=== PATIENT | female | born 1930 | race Caucasian/White ===

== ENCOUNTER 2016-10-20 13:08 | Observation (INO) | payer MEDICARE ==
[~2016-10-20] VITALS: Ht 170.2 cm; Wt 68.5 kg
[~2016-10-20 13:08] MED LIST: LACTG PO; METR-1 PO; ZOLP10TA3 PO; [UNRECOGNIZED DRUG - OTHER]
[2016-10-20 13:12] VITALS: BP 194/90; PULSE 86; RESP 20; TEMP 97.8; O2SAT 99
[2016-10-20 14:55] LABS: AUTOMATED NEUTROPHIL # 5.2 TH/MM3 (1.8-7.7); BASOPHIL # 0.1 TH/MM3 (0-0.2); EOSINOPHIL # 0.3 TH/MM3 (0-0.4); EOSINOPHIL % 3.7 % (0.0-4.0); HEMATOCRIT 44.9 % (35.0-46.0); HEMO FLAGS DIFF FINAL; LYMPH % 23.4 % (9.0-44.0); LYMPHOCYTE # 1.9 TH/MM3 (1.0-4.8); MEAN CELL VOLUME 95.2 FL (80.0-100.0); MEAN CORPUSCULAR HEMOGLOBIN 31.8 PG (27.0-34.0); MEAN CORPUSCULAR HGB CONC 33.4 % (32.0-36.0); NEUT % 63.9 % (16.0-70.0); PLATELET COUNT 276 TH/MM3 (150-450); RED BLOOD COUNT 4.71 MIL/MM3 (4.00-5.30); RED CELL DISTRIBUTION WIDTH 14.2 % (11.6-17.2); WHITE BLOOD COUNT 8.1 TH/MM3 (4.0-11.0)
--- NOTE | 2016-10-20 14:59 | RADRPT ---
EXAM DATE/TIME: 10/20/2016 14:42 [facility] COMPARISON: CHEST SINGLE AP, February 15, 2014, 11:51. INDICATIONS : Syncope, fainted yesterday, weakness in her right arm. MEDICAL HISTORY : None. SURGICAL HISTORY : None. ENCOUNTER: Initial ACUITY: 1 day PAIN SCORE: 0/10 LOCATION: Bilateral chest FINDINGS: The heart is normal size. There are chronic interstitial changes within the pulmonary parenchyma. The lungs are otherwise clear. There degenerative changes within the spine. CONCLUSION: 1. Chronic interstitial changes. No acute abnormality. Vincenzo Ramirez MD on October 20, 2016 at 14:55 Board Certified Radiologist. This report was verified electronically.
[2016-10-20 15:15] LABS: ANION GAP 8 MEQ/L (5-15); BICARBONATE 25.6 MEQ/L (21.0-32.0); BLOOD UREA NITROGEN 11 MG/DL (7-18); CHLORIDE 107 MEQ/L (98-107); GLOMERULAR FILTRATION RATE 81 ML/MIN (>89); POTASSIUM 3.9 MEQ/L (3.5-5.1); SODIUM (NA) 141 MEQ/L (136-145)
[2016-10-20 15:17] VITALS: BP 187/79; PULSE 87; RESP 20; O2SAT 99
[2016-10-20 15:19] LABS: CREATINE KINASE 38 U/L (26-192)
[2016-10-20] MEDS ORDERED: ASPI81CH PO (16:01)
[2016-10-20] MEDS ORDERED: AMBI10TA PO (16:01)
--- NOTE | 2016-10-20 16:23 | EKG ---
Date Performed: 10/20/2016 Time Performed: 14:00:49 PTAGE: 85 years EKG: Sinus rhythm NONSPECIFIC ST & T-WAVE ABNORMALITY BORDERLINE ECG PREVIOUS TRACING : 10/20/2016 13.55 No significant change from previous tracing noted. DOCTOR: Alirio Gray Interpretating Date/Time 10/22/2016 08:13:37
--- NOTE | 2016-10-20 16:23 | PD ---
HPI Chief Complaint: Neuro Symptoms/ Deficits Time Seen by Provider: 16:23 (Analilia Morales) Travel History International Travel<30 days: No Contact w/Intl Traveler<30days: No Traveled to known affect area: No (Analilia Morales) History of Present Illness HPI 85-year-old female with no significant medical history presents to the emergency department for evaluation. Patient states that last evening she was talking with her sister when she "passed out." Abrasion states that she was unconscious for a short amount of time but woke up on the floor and urine. She is uncertain if she struck her head but does not believe so. Today she has been reporting mild headache and neck pain. She also reports right upper extremity numbness and a decreased assurance auditor over the last 2-3 days. Patient states she has even dropped her beer because of this. She does drink 2-3 beers nightly. Denies any chest tightness. No difficulty breathing. No other focal deficits or weakness. Patient's primary care provider is Dr. LEVY. She has no other symptoms to report of time. (Analilia Morales) [facility] Past Medical History Arthritis: Yes Cardiovascular Problems: No High Cholesterol: Yes Diminished Hearing: Yes (RIGHT) Neurologic: Yes (sleep disorder ) Tetanus Vaccination: < 5 Years Influenza Vaccination: Yes Menopausal: Yes (Analilia Morales) Past Surgical History Eye Surgery: Yes (cataracts) Hysterectomy: Yes Pacemaker: No Other Surgery: Yes (LAMINECTOMY, SINUS SURGERY) (Analilia Morales) Social History Alcohol Use: Yes (A BEER NIGHTLY) Tobacco Use: No Substance Use: No (Analilia Morales) Allergies-Medications (Allergen,Severity, Reaction): Coded Allergies: Sulfa (Verified Allergy, Severe, 10/20/16) Adhesives (Verified Allergy, Intermediate, RASH, 10/20/16) Reported Meds & Prescriptions Reported Meds & Active Scripts Active Reported Ambien (Zolpidem Tartrate) 10 Mg Tab 10 Mg PO HS PRN Aspirin 81 Mg Chew 81 Mg PO DAILY (Meera Su MD) Review of Systems Except as stated in HPI: all other systems reviewed are Neg (Analilia Morales ) Physical Exam Narrative GENERAL: Well-nourished elderly female patient, sitting up in bed in no acute distress SKIN: Focused skin assessment warm/dry. HEAD: Atraumatic. Normocephalic. EYES: Pupils equal and round. No scleral icterus. No injection or drainage. ENT: No nasal bleeding or discharge. Mucous membranes pink and moist. NECK: Trachea midline. No JVD. CARDIOVASCULAR: Regular rate and rhythm. No murmur appreciated. RESPIRATORY: No accessory muscle use. Clear to auscultation. Breath sounds equal bilaterally. GASTROINTESTINAL: Abdomen soft, non-tender, nondistended. Hepatic and splenic margins not palpable. MUSCULOSKELETAL: No obvious deformities. No clubbing. No cyanosis. No edema. NEUROLOGICAL: Awake and alert. No obvious cranial nerve deficits. Motor grossly within normal limits. Normal speech. PSYCHIATRIC: Appropriate mood and affect; insight and judgment normal. (Analilia Morales) Data Data Orders Electrocardiogram (10/20/16 13:44) Complete Blood Count With Diff (10/20/16 13:44) Basic Metabolic Panel (Bmp) (10/20/16 13:44) Ckmb (Isoenzyme) Profile (10/20/16 13:44) Troponin I (10/20/16 13:44) Iv Access Insert/Monitor (10/20/16 13:44) Chest, Pa & Lat (10/20/16 13:44) Ct Brain W/O Iv Contrast(Rout) (10/20/16 ) Urinalysis - C+S If Indicated (10/20/16 16:21) Ct Cerv Spine W/O Contrast (10/20/16 ) Electrocardiogram (10/20/16 ) Troponin I (10/20/16 16:23) Neuro Checks . ORDERED (10/20/16 18:28) Sodium Chlor 0.9% 1000 Ml Inj (Ns 1000 M (10/20/16 18:30) Diet Heart Healthy (10/20/16 Dinner) Admit Order (Ed Use Only) (10/20/16 18:29) (Meera Su MD) [facility] Medical Decision Making Medical Screen Exam Complete: Yes Emergency Medical Condition: Yes Medical Record Reviewed: Yes Differential Diagnosis Syncope versus near syncope versus arrhythmia versus electrolyte abnormality versus UTI versus TIA Narrative Course 85 year-old female presents to emergency department for evaluation following a syncopal episode that occurred yesterday. Patient has no focal deficits or weakness on assessment, however she does report subjective weakness in the right upper extremity over the last 2-3 days. No obvious trauma. CBC and BMP are without acute concern. Troponin is less than 0.02. CT imaging is without any acute intracranial abnormality. Last Impressions Chest X-Ray 10/20/16 1344 Signed Impressions: Service Date/Time: Tuesday, October 20, 2016 14:42 - CONCLUSION: 1. Chronic interstitial changes. No acute abnormality. Vincenzo Ramirez MD Head CT 10/20/16 0000 Signed Impressions: Service Date/Time: Tuesday, October 20, 2016 17:29 - CONCLUSION: Chronic and small vessel ischemic changes without any evidence for acute hemorrhage or mass effect. Maggie Iqbal MD Cervical Spine CT 10/20/16 0000 Signed Impressions: Service Date/Time: Tuesday, October 20, 2016 17:31 - CONCLUSION: Chronic changes as above without fracture or any significant compromise to the thecal sac or the exiting nerve roots. Maggie Iqbal MD I discussed the patient with my attending physician who agrees the patient would benefit from further syncopal workup as she is 85. Pt also has subjective RUE weakness x 3 days with no obvious etiology from her cervical spine: TIA versus CVA may need to be considered. A call has been placed [facility] with [facility] for observation admission. Plan is discussed with the patient and her family at bedside. They are in agreement with this plan of care. (Analilia Morales) Narrative Course Router Operator Radial signing for document in draft. (eMera Su MD) Diagnosis Primary Impression: Syncope Qualified Code: R55 - Syncope, unspecified syncope type Additional Impressions: RUE numbness RUE weakness UTI (urinary tract infection) Qualified Code: N39.0 - Urinary tract infection without hematuria, site unspecified Admitting Information Admitting Physician Requests: Observation (Analilia Morales) Scripts Cephalexin 500 Mg [id number] Mg PO TID #19 CAP Ref 0 Prov:Janis Robbins MD 10/21/16 Condition: Stable Analilia Morales Oct 20, 2016 16:23 Meera Su MD Oct 29, 2016 17:32 Calcium Level 9.3 MG/DL Total Creatine Kinase 38 U/L Troponin I LESS THAN 0.02 LESS THAN 0.02 NG/ML NG/ML Urine Color LIGHT-YELLOW Urine Turbidity CLEAR Urine pH 6.5 Urine Specific [place] 1.007 Urine Protein NEG mg/dL Urine Glucose (UA) NEG mg/dL Urine Ketones NEG mg/dL Urine Occult Blood NEG Urine Nitrite NEG Urine Bilirubin NEG Urine Urobilinogen LESS THAN 2.0 MG/DL Urine Leukocyte Esterase LARGE Urine RBC 1 /hpf Urine WBC 16 /hpf Urine Squamous Epithelial <1 /hpf Cells Urine Bacteria RARE /hpf Microscopic Urinalysis Comment CULTURE INDICATED MDM Medical Decision Making Medical Screen Exam Complete: Yes Emergency Medical Condition: Yes Medical Record Reviewed: Yes Differential Diagnosis Syncope versus near syncope versus arrhythmia versus electrolyte abnormality versus UTI versus TIA Narrative Course 85 year-old female presents to emergency department for evaluation following a syncopal episode that occurred yesterday. Patient has no focal deficits or weakness on assessment, however she does report subjective weakness in the right upper extremity over the last 2-3 days. No obvious trauma. CBC and BMP are without acute concern. Troponin is less than 0.02. CT imaging is without any acute intracranial abnormality. Last Impressions Chest X-Ray 10/20/16 1344 Signed Impressions: Service Date/Time: Tuesday, October 20, 2016 14:42 - CONCLUSION: 1. Chronic interstitial changes. No acute abnormality. Vincenzo Ramirez MD Head CT 10/20/16 0000 Signed Impressions: Service Date/Time: Thursday, October 20, 2016 17:29 - CONCLUSION: Chronic and small vessel ischemic changes without any evidence for acute hemorrhage or mass effect. Maggie Iqbal MD Cervical Spine CT 10/20/16 0000 Signed Impressions: Service Date/Time: Thursday, October 20, 2016 17:31 - CONCLUSION: Chronic changes as above without fracture or any significant compromise to the thecal sac or the exiting nerve roots. aMggie Iqbal MD I discussed the patient with my attending physician who agrees the patient would benefit from further syncopal workup as she is 85. Pt also has subjective RUE weakness x 3 days with no obvious etiology from her cervical spine: TIA versus CVA may need to be considered. A call has been placed Merged with [facility] for observation admission. Plan is discussed with the patient and her family at bedside. They are in agreement with this plan of care. Diagnosis Primary Impression: Syncope Qualified Code: R55 - Syncope, unspecified syncope type Additional Impressions: RUE numbness RUE weakness UTI (urinary tract infection) Qualified Code: N39.0 - Urinary tract infection without hematuria, site unspecified Admitting Information Admitting Physician Requests: Observation Condition: Stable Analilia Morales Oct 20, 2016 16:23
[2016-10-20 16:50] VITALS: BP 152/87; PULSE 89; RESP 16; TEMP 97.9; O2SAT 99
--- NOTE | 2016-10-20 17:50 | RADRPT ---
EXAM DATE/TIME: 10/20/2016 17:29 [facility] COMPARISON: CT BRAIN W/O CONTRAST, February 15, 2014, 12:12. INDICATIONS : Syncope episode last night. RADIATION DOSE: 56.35 CTDIvol (mGy) MEDICAL HISTORY : None SURGICAL HISTORY : Hysterectomy. ENCOUNTER: Initial ACUITY: 1 day PAIN SCALE: 0/10 LOCATION: cranial TECHNIQUE: Multiple contiguous axial images were obtained of the head. Using automated exposure control and adj ustment of the mA and/or kV according to patient size, radiation dose was kept as low as reasonably a chievable to obtain optimal diagnostic quality images. DICOM format image data is available electro nically for review and comparison. FINDINGS: There is no evidence for intracranial hemorrhage, mass effect, mass lesions, or edema. The visualize d bony structures appear intact. Moderate degree of brain atrophy is seen. Moderate periventricular white matter changes are seen nonspecific mostly consistent with chronic small vessel ischemic change s. There are no signs of acute infarction for technique. CONCLUSION: Chronic and small vessel ischemic changes without any evidence for acute hemorrhage o r mass effect. Maggie Iqbal MD on October 20, 2016 at 17:46 Board Certified Radiologist. This report was verified electronically.
--- NOTE | 2016-10-20 17:56 | RADRPT ---
EXAM DATE/TIME: 10/20/2016 17:31 [facility] COMPARISON: No previous studies available for comparison. INDICATIONS : Syncope episode last night. RADIATION DOSE: 27.15 CTDIvol (mGy) MEDICAL HISTORY : None SURGICAL HISTORY : Hysterectomy. ENCOUNTER: Initial ACUITY: 1 day PAIN SCALE: 0/10 LOCATION: neck TECHNIQUE: Volumetric scanning of the cervical spine was performed. Multiplanar reconstructions in the sagittal, coronal and oblique axial planes were performed. Using automated exposure control and adjustment o f the mA and/or kV according to patient size, radiation dose was kept as low as reasonably achievable to obtain optimal diagnostic quality images. DICOM format image data is available electronically f or review and comparison. FINDINGS: No evidence of subluxation. Short node formation is present involving the superior endplate of T 2. There is osteopenia without definite fracture. Surgical screws traverse the bodies of C3 and C4 wi th a plate placed anteriorly and evidence for anterior fusion. There is pannus formation at the C1-2 level surrounding the dens chronic in nature. C2-C3: There is no evidence for any significant compromise to the thecal sac, or the exiting nerve roots. N o appreciable thecal sac stenosis is seen. The neural foramina and lateral recess appear patent bila terally. C3-C4: There is no evidence for any significant compromise to the thecal sac, or the exiting nerve roots. N o appreciable thecal sac stenosis is seen. The neural foramina and lateral recess appear patent bila terally. C4-C5: Slight hypertrophic changes are seen with indentation on the thecal sac and no significant compromise to the thecal sac or the exiting nerve roots. The neural foramina are grossly patent bilaterally. C5-C6: Slight bulging disc and hypertrophic changes are seen with indentation on the thecal sac and no signi ficant compromise to the thecal sac or the exiting nerve roots. C6-C7: Slight degenerative changes are seen within the disc space and facets. Slight bulging disc and hypert rophic changes are seen with indentation on the thecal sac and no significant compromise to the theca l sac or the exiting nerve roots. C7-T1: There is no evidence for any significant compromise to the thecal sac, or the exiting nerve roots. N o appreciable thecal sac stenosis is seen. The neural foramina and lateral recess appear patent bila terally. CONCLUSION: Chronic changes as above without fracture or any significant compromise to the thecal sac or the exit ing nerve roots. Maggie Iqbal MD on October 20, 2016 at 17:49 Board Certified Radiologist. This report was verified electronically.
[2016-10-20 18:30] LABS: BACTERIA, URINE RARE /hpf; BLOOD, URINE NEG (NEG); COMMENT (UR) CULTURE INDICATED; CULTURE IF INDICATED CULTURE INDICATED; GLUCOSE,URINE NEG (NEG); KETONE, URINE NEG (NEG); NITRITE,URINE NEG (NEG); PH, URINE 6.5 (5.0-8.5); SQUAMOUS EPITHELIAL CELL URINE <1 /hpf (0-5); URINE COLOR LIGHT-YELLOW (YELLW/STRAW)
[2016-10-20] MEDS ORDERED: SODIUM CHLOR 0.9% 1000 ML INJ 1,000 ML IV SCH (18:30)
[2016-10-20] MEDS ORDERED: SODIUM CHLORIDE 0.9% FLUSH 10 ML FLUSH IV FLUSH PRN (20:30)
[2016-10-20 20:52] VITALS: BP 183/93; PULSE 89; RESP 17; TEMP 97.6; O2SAT 96
[2016-10-20] MEDS ORDERED: ACETAMINOPHEN 325 MG TAB PO PRN (21:00)
--- NOTE | 2016-10-20 21:57 | RADRPT ---
EXAM DATE/TIME: 10/20/2016 21:19 [facility] COMPARISON: No previous studies available for comparison. INDICATIONS : Syncope. MEDICAL HISTORY : Hypercholesterolemia. Hypertension. Arthritis. SURGICAL HISTORY : Total knee replacement, left. Hip replacement, right. L3, L4, L5 fusion. ENCOUNTER: Initial ACUITY: 1 day PAIN SCORE: 0/10 LOCATION: Bilateral neck PEAK SYSTOLIC VELOCITIES (cm/sec): ICA/CCA RATIO: Right: 0.9 Left: 1.5 ICA: Right: 59.6 Left: 90.6 CCA: Right: 63.3 Left: 61.2 ECA: Right: 67.2 Left: 58.0 VERTEBRAL: Right: 33.1 antegrade Left: 43.8 antegrade Elevated flow velocities and ICA/CCA ratios have been found to correlate with increased degrees of vessel stenosis, calculated as percentage of diameter relative to a normal segment of distal ICA/CCA FINDINGS: RIGHT CAROTID: There is no evidence for a hemodynamically significant carotid stenosis. Minimal int imal hyperplasia is present with scattered calcific plaque. LEFT CAROTID: There is no evidence for a hemodynamically significant carotid stenosis. Minimal inti mal hyperplasia is present with scattered calcific plaque. VERTEBRAL ARTERIES: Flow is antegrade in both vertebral arteries. MISCELLANEOUS: There are no ancillary masses or adenopathy. CONCLUSION: Negative examination for a hemodynamically significant carotid stenosis. Antelmo Ramirez MD FACR Board Certified Radiologist. This report was verified electronically.
--- NOTE | 2016-10-20 22:33 | EKG ---
Date Performed: 10/20/2016 Time Performed: 16:48:30 PTAGE: 85 years EKG: Sinus rhythm NONSPECIFIC ST & T-WAVE ABNORMALITY BORDERLINE ECG PREVIOUS TRACING : 10/20/2016 14.00 No significant change from previous tracing noted. DOCTOR: Alirio Gray Interpretating Date/Time 10/20/2016 22:31:24
--- NOTE | 2016-10-20 23:11 | HHI.HP ---
HPI Service [facility] Primary Care Physician Evelyne Tristan MD Admission Diagnosis syncope; subjective RUE weakness/numbness Diagnoses: (1) Syncope (2) UTI (urinary tract infection) Chief Complaint: Passed out while in bathroom Travel History International Travel<30 Days: No Contact w/Intl Traveler <30 Da: No Traveled to Known Affected Are: No History of Present Illness Written by Chula Tipton, acting as scribe for Dr. Medel on 10/20/16 at 23:11. The patient was going to sit on the toilet yesterday afternoon and blacked out and ended up waking up on the floor covered in urine and feces. She drank two beers prior to this episode. She was unable to get back up; a neighbor alerted her son who was sitting in the garage and he came to get her up. She went about her day as normal afterwards. The next day, her son talked her into to calling her primary doctor but he's out of town so she was referred to urgent care. She went to urgent care and they referred her to the ED. 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 She says her splunk dashboard developer is just weak bilaterally and it made her drop a large beer a couple of days ago. Denies blurred vision, tinnitus, chest pain, shortness of breath, weakness, or paresthesias. The first time this occurred was in June 2016; went with family. They had been drinking, including the patient, she also took a sleeping pill and she passed out while going to bathroom. The patient reports a great deal of stress in personal life - her son . Review of Systems Except as stated in HPI: all other systems reviewed are Neg Past Family Social History Past Medical History Insomnia Denies diabetes mellitus, hypertension, copd, liver or kidney problems, DVT, PE , CVA, seizures, cancer, thyroid problems . Past Surgical History Hysterectomy Total right hip arthroplasty Total left knee arthroplasty Right Blepharoplasty Carpal tunnel Sinus surgery Breast biopsy- benign Back and neck surgeries with metal angi placement . Reported Medications Ambien mg qhs prn insomnia Probiotic Aspirin 81 Mg . Allergies: Coded Allergies: Sulfa (Verified Allergy, Severe, 10/20/16) Adhesives (Verified Allergy, Intermediate, RASH, 10/20/16) Active Ordered Medications Current Medications Sodium Chloride (NS 1000 ml Inj) 1,000 ml @ 75 mls/hr [id number] IV Last administered on 10/20/16t 20:11; Start 10/20/16 at 18:30 Cephalexin Monohydrate (Keflex) 500 mg Q12HR PO ; Start 10/20/16 at 21:00; Stop 10/27/16 at 20:59 Sodium Chloride (NS Flush) 2 ml UNSCH PRN IV FLUSH FLUSH AFTER USING IV ACCESS ; Start 10/20/16 at 20:30 Sodium Chloride (NS Flush) 2 ml BID IV FLUSH ; Start 10/20/16 at 21:00 Acetaminophen (Tylenol) 650 mg Q6HR PRN PO pain 1-10, fever > 100.4; Start 03/27 at 21:00 . Family History Denies any significant family medical history - specifically diabetes or cancers . Social History Tobacco: denies Alcohol: two beers daily Illicit Drugs: denies . Physical Exam Vital Signs Vital Signs Date Time Temp Pulse Resp B/P Pulse Ox O2 Delivery O2 Flow Rate FiO2 10/20/16 20:52 97.6 89 17 183/93 96 10/20/16 16:50 97.9 89 16 152/87 99 Room Air 10/20/16 16:02 81 16 99 Room Air 10/20/16 15:17 87 20 187/79 99 10/20/16 13:12 97.8 86 20 194/90 99 Room Air Physical Exam GENERAL: This is a pleasant female patient, in no apparent distress. SKIN: No rashes, ecchymoses or lesions. Cool and dry. HEAD: Atraumatic. Normocephalic. EYES: No scleral icterus. No injection or drainage. ENT: Nose without bleeding, purulent drainage. NECK: Trachea midline. No JVD or lymphadenopathy. CARDIOVASCULAR: Regular rate and rhythm without murmurs, gallops, or rubs. RESPIRATORY: Clear to auscultation. Breath sounds equal bilaterally. No wheezes , rales, or rhonchi. GASTROINTESTINAL: Abdomen soft, non-tender, nondistended. No guarding. MUSCULOSKELETAL: Extremities without clubbing, cyanosis, or edema. No calf tenderness. NEUROLOGICAL: Awake and alert. Motor and sensory grossly within normal limits. Normal speech. No focal deficits noted. . Laboratory Laboratory Tests Test 10/20/16 10/20/16 10/20/16 14:10 16:30 17:30 White Blood Count 8.1 Red Blood Count 4.71 Hemoglobin 15.0 Hematocrit 44.9 Mean Corpuscular Volume 95.2 Mean Corpuscular Hemoglobin 31.8 Mean Corpuscular Hemoglobin 33.4 Concent Red Cell Distribution Width 14.2 Platelet Count 276 Mean Platelet Volume 8.2 Neutrophils (%) (Auto) 63.9 Lymphocytes (%) (Auto) 23.4 Monocytes (%) (Auto) 8.0 Eosinophils (%) (Auto) 3.7 Basophils (%) (Auto) 1.0 Neutrophils # (Auto) 5.2 Lymphocytes # (Auto) 1.9 Monocytes # (Auto) 0.6 Eosinophils # (Auto) 0.3 Basophils # (Auto) 0.1 CBC Comment DIFF FINAL Differential Comment Sodium Level 141 Potassium Level 3.9 Chloride Level 107 Carbon Dioxide Level 25.6 Anion Gap 8 Blood Urea Nitrogen 11 Creatinine 0.69 Estimat Glomerular Filtration 81 Rate Random Glucose 85 Calcium Level 9.3 Total Creatine Kinase 38 Troponin I LESS THAN 0.02 LESS THAN 0.02 Urine Color LIGHT-YELLOW Urine Turbidity CLEAR Urine pH 6.5 Urine Specific [place] 1.007 Urine Protein NEG Urine Glucose (UA) NEG Urine Ketones NEG Urine Occult Blood NEG Urine Nitrite NEG Urine Bilirubin NEG Urine Urobilinogen LESS THAN 2.0 Urine Leukocyte Esterase LARGE Urine RBC 1 Urine WBC 16 Urine Squamous Epithelial <1 Cells Urine Bacteria RARE Microscopic Urinalysis Comment CULTURE INDICATED Date/Time Procedure Status Source Growth 10/20/16 17:30 Urine Culture Received Urine Random Urine Pending Result Diagram: 10/20/16 1410 10/20/16 1410 Imaging Last Impressions Chest X-Ray 10/20/16 1344 Signed Impressions: Service Date/Time: Thursday, October 20, 2016 14:42 - CONCLUSION: 1. Chronic interstitial changes. No acute abnormality. Vincenzo Ramirez MD Head CT 10/20/16 0000 Signed Impressions: Service Date/Time: Thursday, October 20, 2016 17:29 - CONCLUSION: Chronic and small vessel ischemic changes without any evidence for acute hemorrhage or mass effect. Maggie Iqbal MD Cervical Spine CT 10/20/16 0000 Signed Impressions: Service Date/Time: Thursday, October 20, 2016 17:31 - CONCLUSION: Chronic changes as above without fracture or any significant compromise to the thecal sac or the exiting nerve roots. Maggie Iqbal MD Carotid Artery Ultrasound 10/20/16 0000 Signed Impressions: Service Date/Time: Thursday, October 20, 2016 21:19 - CONCLUSION: Negative examination for a hemodynamically significant carotid stenosis. Antelmo Ramirez MD . Assessment and Plan Problem List: (1) Syncope ICD Code: R55 Status: Acute (2) UTI (urinary tract infection) ICD Code: N39.0 Status: Acute Assessment and Plan 85 y/o female who presented to the ED for evaluation of syncopal episode. Syncope with loss of bladder control seizure vs TIA vs UTI vs alcohol intoxication - Head CT with chronic and small vessel ischemic changes with no evidence for acute hemorrhage or mass effect - EEG study - Consult neurology assistance appreciated - Bilateral carotid ultrasound - done and was negative - 2D echocardiogram - Neuro examinations q4h - Continuous cardiac telemetry to monitor for cardiac arrhythmias - Serial EKGs and troponin I to r/o ACS - CT cervical spine with no acute changes no fracture or significant compromise to the thecal sac or exiting nerve roots UTI suspected - UA c/w UTI - Keflex 500 mg q12h p.o. - Urine culture ordered await results and adjust treatment if necessary DVT prophylaxis - Lovenox 40 mg q24h subq . Discussed Condition With RN and patient . Problem Qualifiers (1) Syncope: Qualified Code: R55 - Syncope, unspecified syncope type (2) UTI (urinary tract infection): Qualified Code: N39.0 - Urinary tract infection without hematuria, site unspecified Chula Tipton Oct 20, 2016 23:11
[2016-10-20] MEDS: CEPHALEXIN MONOHYDRATE 500 MG CAP PO SCH (23:19)
[2016-10-20] MEDS: SODIUM CHLORIDE 0.9% FLUSH 10 ML FLUSH IV FLUSH SCH (23:19)
[2016-10-20] MEDS ORDERED: ZOLPIDEM TARTRATE 5 MG TAB PO PRN (23:45)
[2016-10-21] VITALS (10 sets, daily range): BP systolic 130–191; BP diastolic 63–84; PULSE 80–95; RESP 15–17; TEMP 97.7–98; O2SAT 81–99
[2016-10-21 07:41] LABS: AUTOMATED NEUTROPHIL # 3.5 TH/MM3 (1.8-7.7); BASOPHIL # 0.1 TH/MM3 (0-0.2); EOSINOPHIL # 0.3 TH/MM3 (0-0.4); HEMATOCRIT 40.9 % (35.0-46.0); HEMO FLAGS DIFF FINAL; LYMPH % 29.7 % (9.0-44.0); LYMPHOCYTE # 1.9 TH/MM3 (1.0-4.8); MEAN CELL VOLUME 94.6 FL (80.0-100.0); MEAN CORPUSCULAR HEMOGLOBIN 32.1 PG (27.0-34.0); MEAN CORPUSCULAR HGB CONC 33.9 % (32.0-36.0); MONO % 9.4 % (0.0-8.0); NEUT % 54.9 % (16.0-70.0); PLATELET COUNT 237 TH/MM3 (150-450); RED BLOOD COUNT 4.33 MIL/MM3 (4.00-5.30); RED CELL DISTRIBUTION WIDTH 14.1 % (11.6-17.2); WHITE BLOOD COUNT 6.4 TH/MM3 (4.0-11.0)
[2016-10-21] MEDS: CEPHALEXIN MONOHYDRATE 500 MG CAP PO SCH (08:03)
[2016-10-21] MEDS: SODIUM CHLORIDE 0.9% FLUSH 10 ML FLUSH IV FLUSH SCH (08:03)
[2016-10-21] MEDS ORDERED: ASPIRIN 81 MG CHEW TAB PO SCH (09:00)
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
--- NOTE | 2016-10-21 12:49 | HHI.PR ---
Subjective Remarks Follow-up for bilateral hand weakness Bilateral hand weakness stable, resolved. No nausea or vomiting. Wants to go home. No other focal weakness. Denies any headache, ambulating Objective Vitals Vital Signs Date Time Temp Pulse Resp B/P Pulse Ox O2 Delivery O2 Flow Rate FiO2 10/21/16 11:41 98.0 81 16 146/67 99 10/21/16 08:10 86 10/21/16 05:14 97.7 85 16 130/63 95 10/21/16 04:01 84 10/21/16 01:30 90 10/21/16 00:26 98.0 80 17 180/79 81 10/20/16 20:52 97.6 89 17 183/93 96 10/20/16 16:50 97.9 89 16 152/87 99 Room Air 10/20/16 16:02 81 16 99 Room Air 10/20/16 15:17 87 20 187/79 99 10/20/16 13:12 97.8 86 20 194/90 99 Room Air I/O 10/20/16 10/20/16 10/20/16 10/21/16 10/21/16 10/21/16 07:00 15:00 23:00 07:00 15:00 23:00 Intake Total 250 ml 720 ml Balance 250 ml 720 ml Intake Oral 100 ml 720 ml IV Total 150 ml # Voids 2 1 Result Diagram: 10/21/16 0704 10/20/16 1410 Imaging Last Impressions Chest X-Ray 10/20/16 1344 Signed Impressions: Service Date/Time: Thursday, October 20, 2016 14:42 - CONCLUSION: 1. Chronic interstitial changes. No acute abnormality. Vincenzo Ramirez MD Head CT 10/20/16 0000 Signed Impressions: Service Date/Time: Thursday, October 20, 2016 17:29 - CONCLUSION: Chronic and small vessel ischemic changes without any evidence for acute hemorrhage or mass effect. Maggie Iqbal MD Cervical Spine CT 10/20/16 0000 Signed Impressions: Service Date/Time: Thursday, October 20, 2016 17:31 - CONCLUSION: Chronic changes as above without fracture or any significant compromise to the thecal sac or the exiting nerve roots. Maggie Iqbal MD Carotid Artery Ultrasound 10/20/16 0000 Signed Impressions: Service Date/Time: Thursday, October 20, 2016 21:19 - CONCLUSION: Negative examination for a hemodynamically significant carotid stenosis. Antelmo Ramirez MD Objective Remarks GENERAL: This is a pleasant female patient, in no apparent distress. SKIN: No rashes, ecchymoses or lesions. Cool and dry. HEAD: Atraumatic. Normocephalic. EYES: No scleral icterus. No injection or drainage. ENT: Nose without bleeding, purulent drainage. NECK: Trachea midline. No JVD or lymphadenopathy. CARDIOVASCULAR: Regular rate and rhythm without murmurs, gallops, or rubs. RESPIRATORY: Clear to auscultation. Breath sounds equal bilaterally. No wheezes , rales, or rhonchi. GASTROINTESTINAL: Abdomen soft, non-tender, nondistended. No guarding. MUSCULOSKELETAL: Extremities without clubbing, cyanosis, or edema. No calf tenderness. NEUROLOGICAL: Awake and alert. Motor and sensory grossly within normal limits. Normal speech. No focal deficits noted. A/P Problem List: (1) Syncope ICD Code: R55 Status: Acute (2) UTI (urinary tract infection) ICD Code: N39.0 Status: Acute Assessment and Plan This is an 85 y/o female who presented to the ED for evaluation of syncopal episode. Syncope with loss of bladder control seizure vs TIA vs UTI vs alcohol intoxication - Head CT with chronic and small vessel ischemic changes with no evidence for acute hemorrhage or mass effect -Cervical spine negative, Bilateral carotid ultrasound - done and was negative. Neurology consulted, recommended EEG and echocardiogram. EEG done, echocardiogram pending. Patient however wants to go home without any of these results. We'll discuss with neurology UTI suspected - UA c/w UTI - Keflex 500 mg TID p.o. , finish 1 week course. DVT prophylaxis - Lovenox 40 mg q24h subq Discharge patient to home if EEG is negative Condition on discharge: Improved Regular Diet as tolerated Ad Irish activity Rx written: Keflex 500 mg 3 times a day for 1 week Follow-up with neurology in 2 weeks Problem Qualifiers (1) Syncope: Qualified Code: R55 - Syncope, unspecified syncope type (2) UTI (urinary tract infection): Qualified Code: N39.0 - Urinary tract infection without hematuria, site unspecified Janis Robbins MD Oct 21, 2016 12:49
[2016-10-21] MEDS ORDERED: CEPH500C PO (15:27)
--- NOTE | 2016-10-21 19:09 | MG ---
cc: MAGGI RIVERO M.D. Lab No: [id number] Date: 10/21/16 Age: 85 Sex: F Race: HISTORY Passing out, woke up on the floor in urine. An 85-year-old woman with depression, alcohol and caffeine use. MEDICATIONS 1. Ambien. 2. Aspirin. DESCRIPTION OF RECORD Diffuse beta and alpha waves are noted. The recording overall synchronous and symmetric. Photic stimulation was performed with some symmetric posterior driving at some of the higher frequencies. No hemisphere asymmetry is noted. No epileptiform or seizure activity is seen. Hyperventilation was performed without significant change in the background. IMPRESSION A normal awake EEG. No evidence for a focal or diffuse abnormality. MD ANNELISE Freed/MISAEL /6:42 PM /7:04 PM
== END 2016-10-21 19:49 | disposition home or self-care (01) ==
LOC: NEPC 13:08 → NEDA 18:30 → NEPHCDU 20:28
PROVIDERS: ADMIT Hospitalist; ATTEND Hospitalist
DX: R55 Syncope and collapse (principal); N39.0 Urinary tract infection, site not specified; R53.1 Weakness; R51 Headache; M54.2 Cervicalgia; R20.0 Anesthesia of skin; M79.605 Pain in left leg; E78.00 Pure hypercholesterolemia, unspecified; F32.9 Major depressive disorder, single episode, unspecified; H91.90 Unspecified hearing loss, unspecified ear; M19.90 Unspecified osteoarthritis, unspecified site; Z98.1 Arthrodesis status; Z96.652 Presence of left artificial knee joint; Z96.641 Presence of right artificial hip joint; Z79.82 Long term (current) use of aspirin; W19.XXXA Unspecified fall, initial encounter
CPT/HCPCS: 70450; 71020; 72125; 80048; 81001; 82550; 84484; 85025; 87077; 87086; 87186; 93005; 93880; 95819; 99285; G0378; J7030

== ENCOUNTER 2017-01-16 22:42 | Emergency (ER) | payer MEDICARE ==
[~2017-01-16] VITALS: Ht 172.7 cm; Wt 69.5 kg
[~2017-01-16 22:42] MED LIST changes: +AMBI10TA PO; +ASPI81CH PO; +CEPH500C PO; -LACTG PO; -METR-1 PO; -ZOLP10TA3 PO; -[UNRECOGNIZED DRUG - OTHER]
[2017-01-16 22:43] VITALS: BP 185/84; PULSE 118; RESP 16; TEMP 97.9; O2SAT 95
[2017-01-17] MEDS ORDERED: SACC1CAP3 PO (08:02)
[2017-01-17] MEDS ORDERED: BIOTCAP PO (08:02)
[2017-01-17] MEDS ORDERED: HYDR-3533 PO (09:05)
== END 2017-01-16 23:45 | disposition left against medical advice (07) ==
LOC: NED 22:42
DX: R68.89 Other general symptoms and signs (principal)
CPT/HCPCS: 99281

== ENCOUNTER 2017-01-17 07:45 | Emergency (ER) | payer MEDICARE ==
[~2017-01-17] VITALS: Ht 170.2 cm; Wt 70.0 kg
[2017-01-17 07:49] VITALS: BP 187/84; PULSE 101; RESP 16; TEMP 98; O2SAT 98
[2017-01-17] MEDS ORDERED: SACC1CAP3 PO (08:02)
[2017-01-17] MEDS ORDERED: BIOTCAP PO (08:02)
--- NOTE | 2017-01-17 08:11 | PD ---
HPI Chief Complaint: Injury Time Seen by Provider: 08:02 Travel History International Travel<30 days: No Contact w/Intl Traveler<30days: No Traveled to known affect area: No History of Present Illness HPI 86-year-old female presents emergency Department with complaint of left foot pain after tripping over the edge of grafts and falling. Denies hitting her head, loss of consciousness, neck pain, back pain. Denies anticoagulant therapy. Denies paresthesias, loss of sensation, decreased range of motion, decreased strength to the affected extremity. Reports bruising to the dorsal aspect of her left foot. Is ambulatory with assistance with her walker which she uses at all times. Symptoms are moderate in severity. Pain is aggravated with palpation, movement, ambulation. Has taken Aleve for symptom management. Has no other medical complaints. Allergies to sulfa and adhesives. No other modifying factors or associated signs and symptoms. PFSH Past Medical History Arthritis: Yes Blood Disorders: No Anxiety: Yes Depression: Yes Cancer: No Cardiovascular Problems: No High Cholesterol: Yes Chemotherapy: No Diminished Hearing: Yes (HEARING AIDES) Endocrine: No Genitourinary: Yes (freq uti) Immune Disorder: No Musculoskeletal: No Neurologic: Yes (sleep disorder ) Psychiatric: Yes Respiratory: No Radiation Therapy: No ?: Not Menopausal: Yes Past Surgical History Body Medical Devices: R-hip, L-knee and screws in spine. Eye Surgery: Yes (cataracts) Hysterectomy: Yes Pacemaker: No Other Surgery: Yes (LAMINECTOMY, SINUS SURGERY, EYE LIDS) Social History Alcohol Use: Yes (A BEER NIGHTLY) Tobacco Use: No Substance Use: No Allergies-Medications (Allergen,Severity, Reaction): Coded Allergies: Sulfa (Sulfonamide Antibiotics) (Unverified Allergy, Severe, 11/23/16) adhesive (Unverified Allergy, Intermediate, RASH, 11/23/16) Reported Meds & Prescriptions Reported Meds & Active Scripts Active Lortab (Hydrocodone-Acetaminophen) 5-325 Mg Tab 1 Tab PO Q4-6H PRN Reported Probiotic (Saccharomyces Boulardii) 250 Mg Cap 250 Mg PO BID Biotin 5 Mg Cap 5 Mg PO Ambien (Zolpidem Tartrate) 10 Mg Tab 10 Mg PO HS PRN Aspirin 81 Mg Chew 81 Mg PO DAILY Review of Systems Except as stated in HPI: all other systems reviewed are Neg Physical Exam Narrative GENERAL: Well-nourished, well-developed elderly, female patient, in no acute distress SKIN: Warm and dry. HEAD: Atraumatic. Normocephalic. EYES: Pupils equal and round. No scleral icterus. No injection or drainage. ENT: Mucosa pink and moist. Airway patent. NECK: Trachea midline. CARDIOVASCULAR: Regular rate. RESPIRATORY: No accessory muscle use. GASTROINTESTINAL: Rounded. MUSCULOSKELETAL: Dorsal aspect of left foot with tenderness on palpation to the fourth and fifth metatarsal region ; ecchymosis noted to the fourth and fifth metatarsal area; sensory intact; no obvious deformity; 2+ pedal pulse. Left lower extremity supple and non-tense 2+ pedal pulses and sensory intact without erythema or edema. No obvious deformities. No clubbing. No cyanosis. No edema. NEUROLOGICAL: Awake and alert. Oriented 3. No obvious cranial nerve deficits. Motor grossly within normal limits. Normal speech. PSYCHIATRIC: Appropriate mood and affect; insight and judgment normal. Data Data Last Documented VS Vital Signs Date Time Temp Pulse Resp B/P (MAP) Pulse Ox O2 Delivery O2 Flow Rate FiO2 01/17/17 07:49 98.0 101 16 187/84 (118) 98 Orders Orders Foot, Complete ([id number]) (01/17/17 08:01) Post Op Boot (Shoe) (01/17/17 ) [facility] Medical Decision Making Medical Screen Exam Complete: Yes Emergency Medical Condition: Yes Medical Record Reviewed: Yes Differential Diagnosis Contusion, sprain, fracture Narrative Course 86-year-old female with left foot injury after mechanical fall. Denies hitting her head or loss of consciousness. Denies intake liken therapy. Denies neck pain or back pain. I offered the patient a medication and she declined. Left foot x-ray ordered. 0846: Left foot x-ray concludes: Fractures 2 through 4 metatarsals. Call placed to podiatry. 0900: Dr. Horton at bedside, evaluated the patient, and recommended cam boot and weightbearing on the heel only. And for the patient to follow up with him in his office in 1-2 weeks. Cam boot ordered. Patient has walker for support. Instructed patient to follow up with Dr. Melendez or supply crib attendant of choice. Instructed patient to follow up with primary care provider. Patient verbalizes understanding and agreement with treatment plan. Patient is medically cleared and stable for discharge. Discussed reasons to return to the emergency department. Patient agrees with treatment plan. The patients vital signs are stable and the patient is stable for outpatient follow-up and treatment. Patient discharged home, stable and in no acute distress. Diagnosis Primary Impression: Foot fracture, left Qualified Codes: S92.902A - Unspecified fracture of left foot, initial encounter for closed fracture Referrals: Rodrigo Melendez DPM Senior Network Architect Primary Care Physician Patient Instructions: Foot Fracture in Adults (ED), General Instructions Additional Instructions: Tylenol or ibuprofen as directed and as needed for pain and inflammation Rest, ice, compress, and elevate extremity to decrease pain and inflammation Walker for support Cam Boot for support Bear weight on heel only Avoid aggravating activity; increase activity as tolerated Follow-up with primary care provider Follow-up with supply crib attendant; Dr. Melendez, podiatry Return to the emergency department immediately with worsening of symptoms Med/Other Pt SpecificInfo: Prescription(s) given Scripts Hydrocodone-Acetaminophen (Lortab) 5-325 Mg Tab 1 TAB PO Q4-6H Y for PAIN, #20 TAB 0 Refills Prov: Madhuri Castellanos 01/17/17 Disposition: 01 DISCHARGE HOME Condition: Stable Madhuri Castellanos Jan 17, 2017 08:11
--- NOTE | 2017-01-17 08:40 | RADRPT ---
EXAM DATE/TIME: 01/17/2017 08:14 [facility] COMPARISON: No previous studies available for comparison. INDICATIONS : Left foot pain, fall. MEDICAL HISTORY : None. SURGICAL HISTORY : None. ENCOUNTER: Initial ACUITY: 2 days PAIN SCORE: 9/10 LOCATION: Left anterior foot FINDINGS: Three view examination of the left foot demonstrates soft tissue swelling and mildly displaced fractu res distal shaft of the second and third metatarsals and neck of the fourth metatarsal. Degenerative changes and hallux valgus formation. Plantar calcaneal spur. The calcaneus is intact. Bony minerali zation is normal. CONCLUSION: 1. Fractures 2 through 4 metatarsals. Remi Conn MD on January 17, 2017 at 8:38 Board Certified Radiologist. This report was verified electronically.
[2017-01-17] MEDS ORDERED: HYDR-3533 PO (09:05)
--- NOTE | 2017-01-17 09:26 | MB ---
cc: BRIJESH GUZMAN DPM DATE OF CONSULTATION: 01/17/2017 REASON FOR CONSULTATION Left foot multiple metatarsal fractures. HISTORY OF PRESENT ILLNESS This is an 86-year-old female who fell while at home walking down her driveway. She denies any loss of consciousness or other injury other then twist and fall and pain about the dorsal aspect of her left foot. PAST MEDICAL HISTORY 1. Depression. 2. Anxiety. 3. High cholesterol. 4. Diminished hearing. 5. Sleep disorder. PAST SURGICAL HISTORY 1. Right hip, left knee and screws in the spine. 2. Cataract surgery. 3. Hysterectomy. 4. No pacemaker. SOCIAL HISTORY She has a beer nightly. Denies any other habits. ALLERGIES 1. SULFA. 2. ADHESIVES. MEDICATIONS Outpatient medications: 1. Aspirin. 2. Ambien. 3. Biotin. 4. Probiotic. PHYSICAL EXAMINATION VITAL SIGNS: Temperature 98.0, pulse rate 101, respiratory rate 16, blood pressure 187/84. She is satting 98% on room air. GENERAL: This is an alert and oriented female seen bedside exhibiting nonlabored respirations. She is verbal and appropriate. She is capable of moving all the extremities. LEFT LOWER EXTREMITY: There is bruising and pain upon palpating the distal aspect of the central metatarsals. There is good alignment of the digits. There is no obvious crepitus or instability upon attempting gentle range of motion of the Lisfranc joint, hindfoot or ankle. Pedal pulses are fully palpable. Sensation appears to be intact. IMAGING X-rays are reviewed. There are metatarsal fractures of the diaphyseal portion. They appear to be oblique in nature of the second, third and fourth. There appears to be minimal displacement of 2-3 mm. Intraarticular fracture is not noted. Midfoot, Lisfranc joint and hindfoot there is no fracture-dislocation noted. There is of note osteopenic changes. ASSESSMENT AND PLAN Left foot fall/trip while at home. Metatarsal fractures 2, 3 and 4. Recommendation is protection, rest, ice, elevation, compression with controlled ankle motion boot. Heel weight bear is permitted. The patient will be followed outpatient within the next 1-2 weeks. The patient was educated on the need to wear the boot as much as possible, however, is not mandatory while bathing or sleeping. I discussed findings with the ER staff. I will see the patient within 2-3 weeks. Thank you for this consultation. MARCI Babin/KIM /9:07 AM /9:15 AM
== END 2017-01-17 09:47 | disposition home or self-care (01) ==
LOC: NEPD 07:45
DX: S92.902A Unspecified fracture of left foot, initial encounter for closed fracture (principal); E78.00 Pure hypercholesterolemia, unspecified; H91.90 Unspecified hearing loss, unspecified ear; Z87.39 Personal history of other diseases of the musculoskeletal system and connective tissue; Z86.59 Personal history of other mental and behavioral disorders; Z87.440 Personal history of urinary (tract) infections; Z86.69 Personal history of other diseases of the nervous system and sense organs; W01.0XXA Fall on same level from slipping, tripping and stumbling without subsequent striking against object, initial encounter; Y92.009 Unspecified place in unspecified non-institutional (private) residence as the place of occurrence of the external cause
CPT/HCPCS: 73630; 99283; L2114

== ENCOUNTER 2017-07-02 23:57 | Emergency (ER) | payer MEDICARE ==
[~2017-07-02] VITALS: Ht 170.2 cm; Wt 70.0 kg
[~2017-07-02 23:57] MED LIST changes: +ASPI-516 PO; -ASPI81CH PO; +BIOTCAP PO; -CEPH500C PO; +HYDR-3533 PO; +SACC1CAP3 PO
[2017-07-03 00:13] VITALS: BP 166/77; PULSE 100; RESP 16; TEMP 97.7; O2SAT 95
[2017-07-03] MEDS ORDERED: BP med PO (07:19)
[2017-07-03] MEDS ORDERED: PERC5TAB12 PO (07:34)
== END 2017-07-03 00:33 | disposition left against medical advice (07) ==
LOC: NED 23:57
DX: Z53.21 Procedure and treatment not carried out due to patient leaving prior to being seen by health care provider (principal)
CPT/HCPCS: 99281

== ENCOUNTER 2017-07-03 06:40 | Emergency (ER) | payer MEDICARE ==
[~2017-07-03] VITALS: Ht 170.2 cm; Wt 68.0 kg
[2017-07-03 07:02] VITALS: BP 152/73; PULSE 97; RESP 16; TEMP 96; O2SAT 97
[2017-07-03] MEDS ORDERED: BP med PO (07:19)
[2017-07-03] MEDS ORDERED: ACETAMINOPHEN/HYDROcodone 325 MG/5 MG TAB PO ONE (07:30)
[2017-07-03] MEDS ORDERED: KETOROLAC TROMETHAMINE 60 MG/2 ML (IM) VIAL IM ONE (07:30)
[2017-07-03] MEDS ORDERED: PERC5TAB12 PO (07:34)
--- NOTE | 2017-07-03 07:34 | PD ---
HPI Chief Complaint: Pain: Acute or Chronic Time Seen by Provider: 07:28 Travel History International Travel<30 days: No Contact w/Intl Traveler<30days: No Traveled to known affect area: No History of Present Illness HPI 86-year-old female patient presents to the ER today, states that she had been moving furniture 2 weeks ago, and thinks she injured her back, is having lower back pains, radiates down the leg on the right side. She denies any incontinence, fevers, abdominal pains, or any other issues. She states that it hurts when she bends and moves. She denies any falls or other injuries. She had talked her primary care physician and had been put on prednisone tapers and she states that that did not help a lot and her pain had gotten worse in the last few days. Modifying Factors: None Associated Signs & Symptoms: Right lower back pain with radiation down the right leg Risk Factors: None PFSH Past Medical History Arthritis: Yes Blood Disorders: No Anxiety: Yes Depression: Yes Cancer: No Cardiovascular Problems: No High Cholesterol: Yes Chemotherapy: No Diminished Hearing: Yes (HEARING AIDES) Endocrine: No Genitourinary: Yes (freq uti) Immune Disorder: No Musculoskeletal: No Neurologic: Yes (sleep disorder ) Psychiatric: Yes Respiratory: No Radiation Therapy: No Menopausal: Yes Past Surgical History Body Medical Devices: R-hip, L-knee and screws in spine. Eye Surgery: Yes (cataracts) Hysterectomy: Yes Pacemaker: No Other Surgery: Yes (LAMINECTOMY, SINUS SURGERY, EYE LIDS) Social History Alcohol Use: Yes (occ) Tobacco Use: No Substance Use: No Allergies-Medications (Allergen,Severity, Reaction): Coded Allergies: Sulfa (Sulfonamide Antibiotics) (Unverified Allergy, Severe, 11/23/16) adhesive (Unverified Allergy, Intermediate, RASH, 11/23/16) Reported Meds & Prescriptions Reported Meds & Active Scripts Active Reported [BP med ] PO DAILY Probiotic (Saccharomyces Boulardii) 250 Mg Cap 250 Mg PO BID Ambien (Zolpidem Tartrate) 10 Mg Tab 10 Mg PO HS PRN Aspirin 81 Mg Chew 81 Mg PO DAILY Review of Systems Except as stated in HPI: all other systems reviewed are Neg Physical Exam Narrative GENERAL: Pleasant well-developed elderly white female patient currently mild distress. Awake and oriented 3. SKIN: Focused skin assessment warm/dry. HEAD: Atraumatic. Normocephalic. EYES: Pupils equal and round. No scleral icterus. No injection or drainage. ENT: No nasal bleeding or discharge. Mucous membranes pink and moist. NECK: Trachea midline. No JVD. Supple. CARDIOVASCULAR: Regular rate and rhythm. No murmur appreciated. RESPIRATORY: No accessory muscle use. Clear to auscultation. Breath sounds equal bilaterally. GASTROINTESTINAL: Abdomen soft, non-tender, nondistended. Hepatic and splenic margins not palpable. MUSCULOSKELETAL: No obvious deformities. No clubbing. No cyanosis. No edema. BACK: No CVA tenderness. No rash. No point tenderness on palpation of the spine. Patient's point of tenderness is at the right sciatic notch with radiation down the right leg. No palpable deformities. NEUROLOGICAL: Awake and alert. No obvious cranial nerve deficits. Motor grossly within normal limits. Normal speech. PSYCHIATRIC: Appropriate mood and affect; insight and judgment normal. Data Data Last Documented VS Vital Signs Date Time Temp Pulse Resp B/P (MAP) Pulse Ox O2 Delivery O2 Flow Rate FiO2 07/03/17 07:02 96.0 97 16 152/73 (99) 97 Orders Orders Ketorolac Inj (Toradol Inj) (07/03/17 07:30) Acetamin-Hydrocod 325-5 Mg ([place] 5-325 (07/03/17 07:30) MDM Medical Decision Making Medical Screen Exam Complete: Yes Emergency Medical Condition: Yes Medical Record Reviewed: Yes Differential Diagnosis Lumbar strain versus sciatica Narrative Course Symptoms and area of pain is concerning for sciatica. Patient is put on Toradol and Lortabs for pain. Planning to release with follow-up to primary care doctor. I have also talked to the patient regarding fall precautions. Return for any worsening in symptoms as necessary. The plan has been discussed with her and she states understanding. Diagnosis Primary Impression: Sciatica Med/Other Pt SpecificInfo: Prescription(s) given Scripts Oxycodone-Acetaminophen (Percocet) 5-325 mg Tab 1-2 TAB PO Q6H Y for PAIN, #15 TAB 0 Refills Prov: Aleksandra Swann MD 07/03/17 Disposition: 01 DISCHARGE HOME Condition: Stable Aleksandra Swann MD Jul 03, 2017 07:34
== END 2017-07-03 08:32 | disposition home or self-care (01) ==
LOC: NEPE 06:40
DX: M54.31 Sciatica, right side (principal); M19.90 Unspecified osteoarthritis, unspecified site; F41.9 Anxiety disorder, unspecified; F32.9 Major depressive disorder, single episode, unspecified; E78.00 Pure hypercholesterolemia, unspecified; G47.9 Sleep disorder, unspecified; Z87.440 Personal history of urinary (tract) infections; Z79.82 Long term (current) use of aspirin; Z79.899 Other long term (current) drug therapy
CPT/HCPCS: 96372; 99283; J1885